=== PATIENT | female | born 1955 | race Caucasian/White ===

== ENCOUNTER 2020-10-04 10:28 | Inpatient (IN) ==
--- NOTE | 2020-09-13 13:41 | PAT Medication Instructions ---
Medication Instructions Date of Service September 13, 2020 Home Medications [id number] [Fiorinal-Codeine #3] 1 - 2 cap PO UD PRN cyclobenzaprine 5 mg PO TID PRN diazepam 5 mg PO TID PRN duloxetine 60 mg PO QAM levothyroxine 75 mcg PO QAM losartan 25 mg PO QAM omeprazole 40 mg PO QAM oxycodone 10 mg PO QID PRN topiramate 200 mg PO QAM ASK your surgeon for instructions [id number] [Fiorinal-Codeine #3] 1 - 2 cap PO UD PRN (contains aspirin) DO NOT take the morning of surgery cyclobenzaprine 5 mg PO TID PRN losartan 25 mg PO QAM Take morning of surgery With a small sip of water, OTHERWISE NOTHING TO EAT OR DRINK AFTER MIDNIGHT: diazepam 5 mg PO TID PRN (if needed) duloxetine 60 mg PO QAM levothyroxine 75 mcg PO QAM omeprazole 40 mg PO QAM oxycodone 10 mg PO QID PRN (if needed, may be taken up to four hours before surgery) topiramate 200 mg PO QAM Take evening before surgery cyclobenzaprine 5 mg PO TID PRN (if needed) diazepam 5 mg PO TID PRN (if needed) oxycodone 10 mg PO QID PRN (if needed) Other Notes If you have any questions please call us at [phone] or [phone] or [phone] or [phone]
--- NOTE | 2020-09-19 13:53 | Anesthesiology Consultation ---
Date of Service September 19, 2020 Assessment & Plan (1) Encounter for pre-operative examination: COVID screening: Per assessment on 09/19: Travel screen negative, no known COVID- 19 positive contacts or current COVID-19 related symptoms. Patient scheduled for second covid vaccine 09/26. Surgeon arranging preop COVID testing (scheduled 10/02; AISLINN Barrios). Awaiting results. Chart Review Chart Review: Acceptable Risk for Surgery and Patient seen in Pre Admission Testing Teaching & Discussion Pre-Anesthesia Teaching/Discussion Notes: Instructed NPO after midnight before surgery,except medications with 15 cc of water. Medication instructions provided according to the PAT guidelines. History Surgery Operation Date: 10/04/20 07:45 Proposed Procedures p L3-L4 Decompression, L3-L5 Fusion, Possible L5-S1, L4-L5 Hardware Removal, Spinal Cord Monitoring - Keith Chavarria, DO Height/Weight Height: 5 ft 3.5 in Weight: 83 kg Allergies Allergy/AdvReac Type Severity Reaction Status Date / Time cefprozil Allergy Unknown Tongue/hand Verified 09/16/20 11:08 swelling, itchiness eucalyptol Allergy Unknown Tongue Verified 09/16/20 11:08 [Listerine Antiseptic] swelling, hives Iodinated Contrast Media Allergy Unknown Swelling, Verified 09/16/20 11:08 hives ketorolac [From Toradol] Allergy Unknown Tongue/hand Verified 09/16/20 11:08 swelling, diffuse cramping Listerine Antiseptic Allergy Unknown TONGUE Unverified 11/07/13 13:47 SWELLING, HIVES menthol Allergy Unknown Tongue Verified 09/16/20 11:08 [Listerine Antiseptic] swelling, hives methyl salicylate Allergy Unknown Tongue Verified 09/16/20 11:08 [Listerine Antiseptic] swelling, hives thymol [Listerine Antiseptic] Allergy Unknown Tongue Verified 09/16/20 11:08 swelling, hives Bactrim AdvReac Unknown SEVERE ABD Unverified 11/07/13 13:47 PAIN, N&V doxycycline AdvReac Unknown Severe Verified 09/16/20 11:08 abdominal pain, N/V Penicillins AdvReac Unknown Severe Verified 09/16/20 11:08 abdominal pain, N/V sulfamethoxazole [Bactrim] AdvReac Unknown Severe Verified 09/16/20 11:08 abdominal pain, N/V trimethoprim [Bactrim] AdvReac Unknown Severe Verified 09/16/20 11:08 abdominal pain, N/V Medications Home Medications Medication Instructions Recorded Confirmed Last Taken [id number] 1 - 2 cap PO UD PRN 09/12/20 09/12/20 Unknown [Fiorinal-Codeine #3] cyclobenzaprine 5 mg PO TID PRN 09/12/20 09/12/20 Unknown diazepam 5 mg PO TID PRN 09/12/20 09/12/20 Unknown duloxetine 60 mg PO QAM 09/12/20 09/12/20 Unknown levothyroxine 75 mcg PO QAM 09/12/20 09/12/20 Unknown losartan 25 mg PO QAM 09/12/20 09/12/20 Unknown omeprazole 40 mg PO QAM 09/12/20 09/12/20 Unknown oxycodone 10 mg PO QID PRN 09/12/20 09/12/20 Unknown topiramate 200 mg PO QAM 09/12/20 09/12/20 Unknown Amitiza 1 tab PO BID 09/20/20 09/20/20 Unknown Past Medical History Medical History Anxiety Chronic back pain LBP Depression GERD (gastroesophageal reflux disease) controlled Hypertension Hypothyroidism Kidney stones Migraine Obesity Exercise / Class Metabolic Activity III < 4 Walking/Shop/Light housework Past Family History Family History Grandmother (Paternal) Family history of diabetes mellitus Grandmother (Maternal) Family history of diabetes mellitus Uncle Family history of diabetes mellitus Uncle Family history of diabetes mellitus Past Surgical History Surgical History Fusion of spine 2013 H/O bladder repair surgery History of arthroscopy Left knee History of cholecystectomy History of colonoscopy History of cystoscopy + stents (multiple) History of hysterectomy Hx of abdominoplasty Past Anesthesia History No Hx of Anesthesia Complications and No Family Hx of Anesthesia Complications History of PONV No Hx of PONV and Hx of Motion Sickness (+ cars) Social History Smoking Status: Never smoker Do You Dip or Chew Tobacco: No Hx Alcohol Use: No Hx Substance Use: No Review of Systems No snoring. Patient denies chest pain, shortness of breath, fever, chills, cough, wheezing, palpitations. Physical Exam Vital Signs VITALS BP 132/74 P 66 TEMP 98.8 SP02 99%RA RESP 16 PHYSICAL Full cervical extension range of motion. Full TMJ range of motion. TMD 3.5 finger breaths Mallampati Score 1 Dentition: full upper denture, missing molars Lungs: clear throughout to auscultation Cardiac: regular rate and rhythm, no murmurs noted Spine: normal Carotid arteries: negative bruit Extremities: no edema Lab Results Anesthesia Preop Results Results Anesthesia Widget: WBC 6.74 K/uL (4.8-10.8) 09/19/20 Hgb 13.3 g/dL (12.0-16.0) 09/19/20 Hct 39.7 % (37-47) 09/19/20 Plt 254 K/uL (130-400) 09/19/20 Na 140 mmol/L (136-145) 09/19/20 K 3.2 mmol/L (3.5-5.1) L 09/19/20 Cl 108 mmol/L (98-107) H 09/19/20 CO2 25 mmol/L (21-32) 09/19/20 BUN 12 mg/dl (7-18) 09/19/20 Creat 0.80 mg/dl (0.6-1.2) 09/19/20 Glucose Level 99 mg/dl (70-99) 09/19/20 PT 10.0 Seconds (9.0-12.0) 09/19/20 PTT 24.3 Seconds (21.0-31.0) 09/19/20 INR 1.0 (0.9-1.1) 09/19/20 Urine Color Yellow 09/19/20 Urine Appearance Clear (Clear) 09/19/20 Urine pH 5.5 (4.5-7.5) 09/19/20 Urine Specific [place] 1.013 (1.000-1.030) 09/19/20 Urine Protein Negative (Negative) 09/19/20 Urine Glucose (UA) Negative (Negative) 09/19/20 Urine Ketones Negative (Negative) 09/19/20 Urine Blood 3+ (Negative) H 09/19/20 Urine Nitrite Negative (Negative) 09/19/20 Urine Bilirubin Negative (Negative) 09/19/20 Urine Urobilinogen Negative (Negative) 09/19/20 Urine Leukocyte Esterase Trace (Negative) H 09/19/20 Urine WBC (Auto) 5-10 /hpf (0-5) H 09/19/20 Urine RBC (Auto) >30 /hpf (0-4) H 09/19/20 Urine Hyaline Casts (Auto) 1-5 /lpf (0-5) 09/19/20 Urine Epithelial Cells (Auto) 5-10 /lpf (0-5) H 09/19/20 Urine Bacteria (Auto) Negative (Negative) 09/19/20 Blood Type A Positive 09/19/20 Antibody Screen NEGATIVE 09/19/20 Lab Comments: Potassium mildly low at 3.2. Will forward preop labs to PCP for continuity of care. At anesthesiologist discretion AM DOS if recheck needed. Testing Electrocardiogram Date: 09/19/20 NSR at 61bpm. NS STA. No significant change compared to 11/07/13 per medical care manager. Chest X-Ray Date: 09/19/20 Findings: + NAD
[~2020-10-04 10:28] MED LIST: *CEFAZOLIN*ALLERGY NOTED TO ORDERED MEDICATION SCH; ACETAMINOPHEN 500 MG TAB PO SCH; CLINDAMYCIN 600 MG/54 ML BAG IV SCH; GABAPENTIN 600 MG DOSE PO SCH; LR 15ML/HR IV SCH; [UNRECOGNIZED DRUG - REMARK] SCH
[2020-10-04] MEDS ORDERED: fentaNYL citrate 100 MCG/2 ML VIAL ONE (12:58)
[2020-10-04] MEDS ORDERED: MIDAZOLAM HCL 1 MG/ML 2ML VIAL ONE (12:58)
[2020-10-04] MEDS ORDERED: ePHEDrine sulfate 50 MG/ML AMP IV PRN (13:04)
[2020-10-04] MEDS ORDERED: fentaNYL citrate 100 MCG/2 ML VIAL IV PRN (13:04)
[2020-10-04] MEDS ORDERED: ONDANSETRON INJ 2 MG/ML 2 ML VIAL IV PRN ×2 (13:04→17:03)
[2020-10-04] MEDS ORDERED: HYDROmorphone INJ 2 MG/ML SYR/VIAL IV PRN (13:04)
[2020-10-04] MEDS ORDERED: ATROPINE SULFATE 0.1 MG/ML 10ML SYR IV PRN (13:04)
--- NOTE | 2020-10-04 13:11 | History & Physical Bridge Note ---
Date of Service October 04, 2020 History & Physical Bridge Note I have examined the patient, reviewed the History & Physical and in the interval since the performance of the History & Physical I have noted the following changes of clinical significance: no changes noted
--- NOTE | 2020-10-04 13:12 | History & Physical Report ---
Date of Service October 04, 2020 Assessment & Plan (1) Lumbar stenosis with neurogenic claudication: Admission and Anticipated Discharge Date Admission Date: L3-L4 decompression, L3-L5 fusion, possible L5-S1, L4-5 hardware removal History of Present Illness Chief Complaint: Back and bilateral leg pain Primary Care Provider: Yola Grider DO This is a 65-year-old female who presents with current persistent back and leg pain. Failing course of nonoperative care she is here for surgical invention. Allergies Allergy/AdvReac Type Severity Reaction Status Date / Time cefprozil Allergy Unknown Tongue/hand Verified 10/04/20 11:09 swelling, itchiness eucalyptol Allergy Unknown Tongue Verified 10/04/20 11:09 [Listerine Antiseptic] swelling, hives Iodinated Contrast Media Allergy Unknown Swelling, Verified 10/04/20 11:09 hives ketorolac [From Toradol] Allergy Unknown Tongue/hand Verified 10/04/20 11:09 swelling, diffuse cramping Listerine Antiseptic Allergy Unknown TONGUE Unverified 11/07/13 13:47 SWELLING, HIVES menthol Allergy Unknown Tongue Verified 10/04/20 11:09 [Listerine Antiseptic] swelling, hives methyl salicylate Allergy Unknown Tongue Verified 10/04/20 11:09 [Listerine Antiseptic] swelling, hives thymol [Listerine Antiseptic] Allergy Unknown Tongue Verified 10/04/20 11:09 swelling, hives cefazolin [From Ancef] Allergy Verified 10/04/20 11:36 Bactrim AdvReac Unknown SEVERE ABD Unverified 11/07/13 13:47 PAIN, N&V doxycycline AdvReac Unknown Severe Verified 10/04/20 11:09 abdominal pain, N/V Penicillins AdvReac Unknown Severe Verified 10/04/20 11:09 abdominal pain, N/V sulfamethoxazole [Bactrim] AdvReac Unknown Severe Verified 10/04/20 11:09 abdominal pain, N/V trimethoprim [Bactrim] AdvReac Unknown Severe Verified 10/04/20 11:09 abdominal pain, N/V Home Medications Medication Instructions Recorded Confirmed Type [id number]-[id number]-caff 1 - 2 cap PO UD PRN 09/12/20 09/12/20 History [Fiorinal-Codeine #3] cyclobenzaprine 5 mg PO TID PRN 09/12/20 09/12/20 History diazepam 5 mg PO TID PRN 09/12/20 09/12/20 History duloxetine 60 mg PO QAM 09/12/20 09/12/20 History levothyroxine 75 mcg PO QAM 09/12/20 09/12/20 History losartan 25 mg PO QAM 09/12/20 09/12/20 History omeprazole 40 mg PO QAM 09/12/20 09/12/20 History oxycodone 10 mg PO QID PRN 09/12/20 09/12/20 History topiramate 200 mg PO QAM 09/12/20 09/12/20 History Amitiza 1 tab PO BID 09/20/20 09/20/20 History Past Med/Surg History Medical History (Updated 10/04/20 @ 11:06 by Halima Ribeiro, RN) Anxiety Chronic back pain LBP Depression GERD (gastroesophageal reflux disease) controlled Hypertension Hypothyroidism Kidney stones Kidney stones Migraine Obesity Surgical History Fusion of spine 2013 H/O bladder repair surgery History of arthroscopy Left knee History of cholecystectomy History of colonoscopy History of cystoscopy + stents (multiple) History of hysterectomy Hx of abdominoplasty Family History Grandmother (Paternal) Family history of diabetes mellitus Grandmother (Maternal) Family history of diabetes mellitus Uncle Family history of diabetes mellitus Uncle Family history of diabetes mellitus Social History (Updated 09/12/20 @ 16:03 by Yamilet Mott RN) Smoking Status: Never smoker Second Hand Exposure: Yes (MOTHER SMOKED); Do You Dip or Chew Tobacco: No; Hx Alcohol Use: No Hx Substance Use: No Preferred Language: Chinese Communication Ability: Effective Software Architect Required: No Beliefs That Will Affect Care: None Current Living Situation: Family current occupational status: disabled Other Information That Helps Us Care for You: No Feels Safe at Home: Yes Safety Concerns: Feels Safe At This Time Assistive Devices: Brace/Splint/Immobilizer, Denture - Upper and Glasses Assistive Devices Comment: BACK BRACE PRN Physical Exam Physical Exam: Patient is alert and oriented Heart regular rhythm Lungs clear to auscultation Results & Data ([facility]) Vital Signs (Past 12 Hours) Vital Signs Temp Pulse Resp BP Pulse Ox 10/04/20 11:11 36.6 C 81 20 141/68 H 99
[2020-10-04] MEDS ORDERED: CLINDAMYCIN 600 MG/54 ML D5W IV ONE (13:19)
[2020-10-04] MEDS ORDERED: BUPIVACAINE/EPINEPHRINE 0.5% MPF 1:200,000 30 ML VIAL ONE (13:23)
[2020-10-04] MEDS ORDERED: ONDANSETRON INJ 2 MG/ML 2 ML VIAL ONE (14:04)
[2020-10-04] MEDS ORDERED: HYDROmorphone INJ 2 MG/ML SYR/VIAL ONE (14:04)
[2020-10-04] MEDS ORDERED: LIDOCAINE 2% 2 ML VIAL/AMP(20MG/ML) INFIL ONE (14:04)
[2020-10-04] MEDS ORDERED: PROPOFOL IV EMULSION 10 MG/ML 20 ML VIAL IV ONE (14:04)
[2020-10-04] MEDS ORDERED: DEXAMETHASONE SOD INJ 4 MG/ML VIAL ONE (14:04)
[2020-10-04] MEDS ORDERED: NEOSTIGMINE METHYLSULFATE 1 MG/ML 10ML VIAL ONE (14:04)
[2020-10-04] MEDS ORDERED: LARYING-O-JET KIT (LTA) ONE (14:04)
[2020-10-04] MEDS ORDERED: GLYCOPYRROLATE 0.2 MG/ML VIAL ONE (14:04)
[2020-10-04] MEDS ORDERED: ROCURONIUM BROMIDE 10 MG/ML 5 ML VIAL IV ONE (14:04)
[2020-10-04] MEDS ORDERED: FLOSEAL HEMOSTATIC MATRIX 10ML TOP ONE (14:43)
--- NOTE | 2020-10-04 15:28 | Operative Report ---
Post Operative Report Pre & Post Diagnosis Operation Date: 10/04/20 12:25 Pre-Op Diagnosis: Spinal Stenosis, Lumbar Region with Neurogenic Claudication Post-Op Diagnosis: Spinal Stenosis, Lumbar Region with Neurogenic Claudication I identified the patient and participated in the time-out.: Yes Procedure Operation Date: 10/04/20 12:25 Actual Procedures #1 removal of posterior instrumentation L4-L5. #2 exploration of fusion L4-L5. #3 lumbar decompression bilateral medial facetectomies and foraminotomies L2-3 and L3-4. #4 posterior spinal fusion L3-L4. #5 placed posterior instrumentation L3-L4. #6 interbody fusion L3-L4. #7 placement peek cage 13 x 22 mm at L3-L4. #8 placement locally harvested morselized autograft in the posterior gutters. #9 placement infuse collagen sponge, master graft in the posterior lateral gutters and I factor the interbody space. Surgeon Keith Chavarria, DO [employer] Roly Gtz Estimated Blood Loss 50 Findings See Below The patient is 5 foot 3 inches tall weighing 83 kg with a BMI in excess of 31. Patient's body habitus did contribute to significant technical difficulty requiring her deepest retractors longus instruments in order to perform her procedure. This at least 50% increase to the operative time. Specimens None Indications This is a 65-year-old female who presents with above-mentioned diagnosis after failing course of nonoperative care she is here for the above-mentioned procedure. Description of Procedure Patient was met with identified informed consent obtained. Patient was then taken to the operative suite underwent ablation placed in a prone position the Hernandez table top Bryn frame. All bony prominences well-padded eyes inspected to ensure no external pressure placed upon the. This point the lumbar spine was prepped and draped in a sterile fashion. Sharp dissection with the assistance of Bovie cautery performed down to and exposing the lamina and transverse processes of all 3 and instrumentation at L4-L5 bilaterally. Then proceeded to move the hardware at L4-5 explore the fusion mass noting to me mature and intact. Then performed complete laminectomy of L3 partial laminectomy of L2 including bilateral medial facetectomies and foraminotomies addressing severe spinal stenosis. Pedicle screws were then placed in L3 and L4 bilaterally with assistance of fluoroscopy and the proper sized naresh placed. By way of a transforaminal portion left complete discectomy was performed endplates curetted to subcortical bleeding bone and a 13 x 22 mm peek cage filled with I factor tapped in position. The rods were then locked in final position bilaterally. The transverse processes of L3 and L4 burred to subcortical bleeding bone. Infuse collagen sponge master graft and local autograft was placed in the posterior gutters. 15 round SANTA drain inserted. The incision was then closed with 1 Vicryl the fascia 2-0 Vicryl subcutaneously and 4 Monocryl for final skin closure. Steri-Strip sterile dressings placed. Patient was then taken to PACU stable condition. Please note spinal cord monitoring was utilized at the procedure no changes noted. Lastly Roly Gtz was present at the entire surgery and while the patient positioning complex portions of the surgery and final skin closure. I attest to the content of the Intraoperative Record and any orders documented therein. Any exceptions are noted below.
--- NOTE | 2020-10-04 15:50 | Fluoroscopy Report ---
FL lumbar spine 2-3V HISTORY: 65 years-old Female L4-5 REMOVE HARDWARE/L3-S1 DECOMPRESSION/FUSION/INTERBODY COMPARISON: Lumbar spine fluoroscopic images 11/24/2013 TECHNIQUE: 2 spot fluoroscopic images of the lumbar spine were obtained utilizing 12.5 seconds fluoro scopy time FINDINGS: Magnification limits exact vertebral body numbering. Note that the images were submitted after comple tion of the surgery. Discectomy changes noted at L3-L4 and L4-L5. Posterior interbody naresh and screw f usion noted at L3-L4. Interval removal of the pedicle screws at the L5 level. No opaque foreign emma s identified. IMPRESSION: Fluoroscopic assistance as above. ACT 112: Negative or not required by law. The above report was generated using voice recognition software. It may contain grammatical, syntax o r spelling errors. Electronically signed by: Jose Martinez M.D. 10/04/2020 3:49 PM
--- NOTE | 2020-10-04 16:22 | Anesthesiology Progress Note ---
Date of Service October 04, 2020 Anesthesia Post Procedure Vital Signs Vital Signs: Temp Pulse Pulse Resp BP Pulse Ox 10/04/20 16:15 66 14 119/58 L 100 10/04/20 16:05 73 19 131/65 95 10/04/20 15:55 97.2 F L 89 22 139/89 100 10/04/20 11:11 97.9 F 81 20 141/68 H 99 Pain Intensity Lower Back: Pain Intensity: 5 Transfer of Care Handoff Completed per policy Notes Mental Status: alert / awake / arousable and participated in evaluation Patient Amnestic to Procedure: Yes Nausea / Vomiting: adequately controlled Pain: adequately controlled Airway Patency, RR, SpO2: stable & adequate BP & HR: stable & adequate Hydration State: stable & adequate Anesthetic Complications: no major complications apparent and Pt Satisfied with anesthetic care
[2020-10-04] MEDS ORDERED: ACETAMINOPHEN 1,000 MG/100 ML VIAL IV PRN (17:03)
[2020-10-04] MEDS ORDERED: PROMETHAZINE HCL 12.5 MG in SODIUM CHLORIDE 0.9% 50 ML IV PRN (17:03)
[2020-10-04] MEDS ORDERED: ACETAMINOPHEN 500 MG TAB PO PRN (17:03)
[2020-10-04] MEDS ORDERED: LORazepam 0.5 MG/1 ML VIAL IV PRN (17:03)
[2020-10-04] MEDS ORDERED: FAMOTIDINE 20 MG TAB PO PRN (17:03)
[2020-10-04] MEDS ORDERED: diphenhydrAMINE Capsule 25 MG CAP PO PRN (17:03)
[2020-10-04] MEDS ORDERED: hydrOXYzine HCl 25 MG TAB PO PRN (17:03)
[2020-10-04] MEDS ORDERED: ONDANSETRON 4 MG OD TAB PO PRN (17:03)
[2020-10-04] MEDS ORDERED: HYDROmorphone INJ 1 MG/ML SYRINGE IV PRN (17:03)
[2020-10-04] MEDS ORDERED: traMADol HCL 50 MG TABLET PO PRN (17:03)
[2020-10-04] MEDS ORDERED: NALOXONE HCL 0.4 MG/1 ML VIAL/CARP IV PRN (17:03)
[2020-10-04] MEDS ORDERED: MAGNESIUM HYDROXIDE SUSP 30 ML UDC PO PRN (17:03)
[2020-10-04] MEDS ORDERED: SOD PHOSPHATE/SOD BIPHOSPHATE ENEMA 132 ML BTL PR PRN (17:03)
[2020-10-04] MEDS ORDERED: DO NOT ADMINISTER FLU VACCINE PRN (17:03)
[2020-10-04] MEDS ORDERED: DO NOT ADMINISTER PNEUMOCOCCAL VACCINE PRN (17:03)
[2020-10-04] MEDS ORDERED: HYDROmorphone INJ 0.5 MG/0.5 ML SYR IV PRN (17:03)
[2020-10-04] MEDS ORDERED: CYCLOBENZAPRINE HCL 10 MG TAB PO PRN (17:03)
[2020-10-04] MEDS ORDERED: METOCLOPRAMIDE HCL INJ 5 MG/ML 2 ML VIAL IV PRN (17:03)
[2020-10-04] MEDS: oxyCODONE HCL IR 5 MG TAB (IMMEDIATE RELEASE) PO PRN ×2 (17:45→21:59)
[2020-10-04] MEDS: SODIUM CHLORIDE 0.9% 1000ML 1,000 ML IV SCH (17:45)
--- NOTE | 2020-10-04 19:54 | Consultation ---
Date of Consultation October 04, 2020 Assessment & Plan (1) Status post lumbar surgery: Post op day# 0 S/P removal instrumentation, L2-L4 decompression and fusion by Dr Aura MAURICIO#50ml -pain management per ortho -wound management per ortho -PT/OT as appropriate -DVT prophylaxis per ortho -incentive spirometry -monitor H&H for acute blood loss anemia; pre-op Hgb:13 (2) Hypertension: SBP 90's-114 -Hold losartan and reassess tomorrow (3) Hypothyroidism: -Continue levothyroxine (4) GERD (gastroesophageal reflux disease): -Continue PPI (5) Depression: (6) Anxiety: -Continue duloxetine DVT Prophylaxis -SCDs per ortho Disposition per primary service Follows with Dr Yola Grider in [place], [place] for routine care Pt was seen and care coordinated with Dr Holman. See addendum Thank you for this consultation. We will follow the patient with you during their hospital stay. You can reach a member of the [facility] 02/11 via [employer] Supervising Physician Co-Signing Physician Notes Care coordinated with Mago Yancey PA-C. Agree with above note. Patient seen and examined. Please refer to her notes for full details. Vital signs reviewed. Physical exam: General exam: Alert and oriented. Not in acute distress. CVS: S1 and S2 heard, regular rate and rhythm, no murmurs. RS: Clear to auscultation, no wheezing or crackles. ABD: Soft, bowel sounds present, nontender, no distention. RADIATION PROTECTION ENGINEER: Nonfocal. Musculoskeletal s/p back surgery Dressing intact EXT: No edema, no erythema. Labs: Reviewed. Assessment and plan: 65F s/p back surgery. Tolerated procedure fine. Complains of migraine headache. No other complaints. s/p Back surgery management as per orthopedics Migraine home med Fiorinal prn HTN holding losartan as BP on lower side to restart in am if BP is elevated Other diagnosis and plan of care as per Mago Yancey PA-C . Kar dickerson MD. History of Present Illness Requesting Physician: Dr. Chavarria Reason for Consultation: Postop medical management Attending Physician: Keith Chavarria, DO History of Present Illness Patient is 65-year-old F with PMH HTN, hypothyroidism, GERD, depression, anxiety, h/o kidney stones, obesity seen in medical consultation s/p removal instrumentation, L2-L4 decompression and fusion today by Dr. Chavarria. Postop patient reports feeling well. She reports low back pain but states it is her chronic pain that she feels is tolerable. Denies extremity pain or paresthesias at this time. Was able to get up and ambulate to bathroom without extremity weakness. Denies nausea, vomiting, headache, dizziness, chest pain, shortness of breath. Denies fever/chills, neck pain, palpitations, cough, sore throat, abdominal pain, extremity edema, rashes, urinary symptoms. Allergies Allergy/AdvReac Type Severity Reaction Status Date / Time cefprozil Allergy Unknown Tongue/hand Verified 10/04/20 11:09 swelling, itchiness eucalyptol Allergy Unknown Tongue Verified 10/04/20 11:09 [Listerine Antiseptic] swelling, hives Iodinated Contrast Media Allergy Unknown Swelling, Verified 10/04/20 11:09 hives ketorolac [From Toradol] Allergy Unknown Tongue/hand Verified 10/04/20 11:09 swelling, diffuse cramping Listerine Antiseptic Allergy Unknown TONGUE Unverified 11/07/13 13:47 SWELLING, HIVES menthol Allergy Unknown Tongue Verified 10/04/20 11:09 [Listerine Antiseptic] swelling, hives methyl salicylate Allergy Unknown Tongue Verified 10/04/20 11:09 [Listerine Antiseptic] swelling, hives thymol [Listerine Antiseptic] Allergy Unknown Tongue Verified 10/04/20 11:09 swelling, hives cefazolin [From Ancef] Allergy Verified 10/04/20 11:36 Bactrim AdvReac Unknown SEVERE ABD Unverified 11/07/13 13:47 PAIN, N&V doxycycline AdvReac Unknown Severe Verified 10/04/20 11:09 abdominal pain, N/V Penicillins AdvReac Unknown Severe Verified 10/04/20 11:09 abdominal pain, N/V sulfamethoxazole [Bactrim] AdvReac Unknown Severe Verified 10/04/20 11:09 abdominal pain, N/V trimethoprim [Bactrim] AdvReac Unknown Severe Verified 10/04/20 11:09 abdominal pain, N/V Home Medications Medication Instructions Recorded Confirmed Type [id number] 1 - 2 cap PO UD PRN 09/12/20 09/12/20 History [Fiorinal-Codeine #3] cyclobenzaprine 5 mg PO TID PRN 09/12/20 09/12/20 History diazepam 5 mg PO TID PRN 09/12/20 09/12/20 History duloxetine 60 mg PO QAM 09/12/20 09/12/20 History levothyroxine 75 mcg PO QAM 09/12/20 09/12/20 History losartan 25 mg PO QAM 09/12/20 09/12/20 History omeprazole 40 mg PO QAM 09/12/20 09/12/20 History oxycodone 10 mg PO QID PRN 09/12/20 09/12/20 History topiramate 200 mg PO QAM 09/12/20 09/12/20 History Amitiza 1 tab PO BID 09/20/20 09/20/20 History Patient History Medical History (Updated 10/04/20 @ 19:57 by Mago Yancey PA-C) Anxiety Chronic back pain LBP Depression GERD (gastroesophageal reflux disease) controlled Hypertension Hypothyroidism Kidney stones Kidney stones Migraine Obesity Surgical History (Updated 10/04/20 @ 19:57 by Mago Yancey PA-C) Fusion of spine 2013 H/O bladder repair surgery History of arthroscopy Left knee History of cholecystectomy History of colonoscopy History of cystoscopy + stents (multiple) History of hysterectomy Hx of abdominoplasty Family History Grandmother (Paternal) Family history of diabetes mellitus Grandmother (Maternal) Family history of diabetes mellitus Uncle Family history of diabetes mellitus Uncle Family history of diabetes mellitus Social History Smoking Status: Never smoker Second Hand Exposure: Yes (MOTHER SMOKED); Do You Dip or Chew Tobacco: No; Hx Alcohol Use: No Hx Substance Use: No Preferred Language: Azeri Communication Ability: Effective Waffle Machine Operator Required: No Beliefs That Will Affect Care: None Current Living Situation: Family current occupational status: disabled Other Information That Helps Us Care for You: No Feels Safe at Home: Yes Safety Concerns: Feels Safe At This Time Assistive Devices: Walker Assistive Devices Comment: BACK BRACE PRN Review of Systems Review of Systems: All systems reviewed & are unremarkable except as noted in HPI & below Physical Exam Physical Exam: General: no distress, WDWN Head: normocephalic, atraumatic Eyes: conjunctiva non-injected, anicteric ENT: normal inspection external ears, nose, mucous membranes moist Neck: supple, trachea midline Lungs: clear, no respiratory distress, no wheezing/rhonchi/rales CV: RRR, no murmur, no pretibial edema Abd: normal BS, soft, non-tender Ext: no cyanosis, no calf tenderness; pedal pushes and pulls intact bilaterally, sensation to light touch and intact bilaterally Back: Surgical dressing in place is dry, SANTA drain with small amount of serosanguineous drainage Neuro: A&O x 3, no focal deficits noted, normal affect Skin: warm, dry Results & Data ([facility]) Vital Signs (Past 12 Hours) Vital Signs Temp Pulse Pulse Pulse Resp BP Pulse Ox 10/04/20 19:21 36.4 C L 77 16 114/63 94 10/04/20 18:07 36.4 C L 72 16 93/61 L 97 10/04/20 17:33 77 16 108/67 95 10/04/20 17:03 36.4 C L 65 18 114/68 95 10/04/20 16:55 66 12 116/60 97 10/04/20 16:45 64 12 120/58 L 97 10/04/20 16:35 36.4 C L 65 19 116/59 L 97 10/04/20 16:25 72 18 107/61 92 10/04/20 16:15 66 14 119/58 L 100 10/04/20 16:05 73 19 131/65 95 10/04/20 15:55 36.2 C L 89 22 139/89 100 10/04/20 11:11 36.6 C 81 20 141/68 H 99
[2020-10-04] MEDS: DOCUSATE SODIUM/SENNA 50/8.6MG TAB PO SCH (20:47)
[2020-10-04] MEDS: CLINDAMYCIN 600 MG in DEXTROSE 5% 50 ML IV SCH (20:47)
[2020-10-04] MEDS ORDERED: BUTALBITAL/ASA/CAFFEINE/COD 50/325/40/30 MG CAP PO PRN ×2 (21:21→21:35)
[2020-10-04] MEDS ORDERED: BUTALBITAL/ASA/CAFFEINE/COD 50/325/40/30 MG CAP PO ONE (22:00)
[2020-10-05] MEDS: LORazepam 0.5 MG TAB PO PRN ×2 (00:13→01:05)
[2020-10-05] MEDS: SODIUM CHLORIDE 0.9% 1000ML 1,000 ML IV SCH (03:47)
[2020-10-05] MEDS: CLINDAMYCIN 600 MG in DEXTROSE 5% 50 ML IV SCH (04:58)
[2020-10-05] MEDS: LEVOTHYROXINE SODIUM 75 MCG TABLET PO SCH (05:44)
[2020-10-05] MEDS: POLYETHYLENE (MIRALAX) 17 GM PACK PO SCH ×4 (05:47→21:56)
[2020-10-05] MEDS ORDERED: ACETAMINOPHEN 500 MG TAB PO SCH (06:00)
[2020-10-05] MEDS ORDERED: GABAPENTIN 600 MG DOSE PO SCH (06:00)
[2020-10-05] MEDS: oxyCODONE HCL IR 5 MG TAB (IMMEDIATE RELEASE) PO PRN ×4 (06:02→22:16)
[2020-10-05 06:43] LABS: Eosinophils # (auto) 0.01 K/uL (0-0.5); Eosinophils % (auto) 0.1 %; Hematocrit (blood only) 31.3 % (37-47); Hemoglobin 10.1 g/dL (12.0-16.0); Immature Granulocytes # (auto) 0.01 K/uL (0.00-0.02); Immature Granulocytes % (auto) 0.1 %; Lymphocytes # (auto) 1.17 K/uL (1.2-3.4); Lymphocytes % (auto) 11.1 %; Mean Corpuscular Hemoglobin 29.4 pg (25-34); Mean Corpuscular Hgb Conc 32.3 g/dL (32-36); Mean Platelet Volume 8.7 fL (7.4-10.4); Monocytes # (auto) 0.98 K/uL (0.11-0.59); Monocytes % (auto) 9.3 %; Neutrophils # (auto) 8.39 K/uL (1.4-6.5); Neutrophils % (auto) 79.4 %; Platelet Count 190 K/uL (130-400); RDW Coefficient of Variation 13.5 % (11.5-14.5); RDW Standard Deviation 44.9 fL (36.4-46.3); Red Blood Count 3.44 M/uL (4.2-5.4); White Blood Count 10.56 K/uL (4.8-10.8)
[2020-10-05 07:00] LABS: BUN Creatinine Ratio 16.9 (10-20); Calcium 8.2 mg/dl (8.5-10.1); Creatinine Clr Calc Pharmacy 91.4 ml/min; Est GFR (African American) 109.5 ml/min; Est GFR (Non-African American) 94.5 ml/min
--- NOTE | 2020-10-05 07:33 | Hospitalist Progress Note ---
Date of Service October 05, 2020 Assessment & Plan (1) Status post lumbar surgery: Post op day# 1 S/P removal instrumentation, L2-L4 decompression and fusion by Dr Aura MAURICIO#50ml -pain management per ortho -wound management per ortho -PT/OT as appropriate -DVT prophylaxis per ortho -incentive spirometry -monitor H&H for acute blood loss anemia; pre-op Hgb:13 Anemia, acute blood loss (post-op), dilutional - expected, no need for blood transfusion at this time - current Hgb 10.1, preop Hgb 13 - cont. to monitor H&H (2) Hypertension: SBP 90's-114 -Hold losartan and reassess tomorrow (3) Hypothyroidism: -Continue levothyroxine (4) GERD (gastroesophageal reflux disease): -Continue PPI (5) Depression: (6) Anxiety: -Continue duloxetine DVT Prophylaxis -SCDs per ortho Disposition per primary service Follows with Dr Yola Grider in [place], [place] for routine care Thank you for this consultation. We will follow the patient with you during their hospital stay. You can reach a member of the [facility]ist Team 02/11 via [facility] Admission and Anticipated Discharge Date Admission Date: October 04, 2020 Subjective Patient seen in follow-up, postop, medical consult Currently she is sitting up in bed, in no acute distress Denies any fevers, chills, chest pain, shortness of breath, abdominal pain, nausea or vomiting Reports that she was already ambulating after surgery She does not have a Chacon catheter, and is voiding without difficulty Review of Systems Review of Systems: All systems reviewed & are unremarkable except as noted in HPI & below Constitutional: no fever and no chills Respiratory: no cough and no dyspnea Cardiovascular: no chest pain and no palpitations Gastrointestinal: no abdominal pain, no nausea and no vomiting Physical Exam Physical Exam: General: WDWN F, no distress, Head: normocephalic, atraumatic Eyes: conjunctiva non-injected, anicteric ENT: normal inspection external ears, nose, mucous membranes moist Neck: supple, trachea midline Lungs: clear, no respiratory distress, no wheezing/rhonchi/rales CV: RRR, no murmur, no pretibial edema Abd: normal BS, soft, non-tender Ext: no cyanosis, no calf tenderness; pedal pushes and pulls intact bilaterally, sensation to light touch and intact bilaterally Back: Surgical dressing in place is dry, SANTA drain with small amount of serosanguineous drainage Neuro: A&O x 3, no focal deficits noted, normal affect Skin: warm, dry Results & Data Results & Data ([facility]) Vital Signs (Past 12 Hours) Vital Signs Temp Pulse Resp BP Pulse Ox 10/05/20 03:15 36.9 C 72 16 90/47 L 95 10/04/20 22:31 36.6 C 88 16 133/75 99 10/04/20 20:00 36.6 C 78 16 120/72 94 Laboratory Results 10/05/20 10/05/20 10/04/20 Range/Units 06:33 06:33 11:09 WBC 10.56 (4.8-10.8) K/uL RBC 3.44 L (4.2-5.4) M/uL Hgb 10.1 L (12.0-16.0) g/dL Hct 31.3 L (37-47) % MCV 91.0 (80-100) fL MCH 29.4 (25-34) pg MCHC 32.3 (32-36) g/dL RDW Std Deviation 44.9 (36.4-46.3) fL RDW Coeff of Elio 13.5 (11.5-14.5) % Plt Count 190 (130-400) K/uL MPV 8.7 (7.4-10.4) fL Immature Gran % (Auto) 0.1 % Neut % (Auto) 79.4 % Lymph % (Auto) 11.1 % [place] % (Auto) 9.3 % Eos % (Auto) 0.1 % Baso % (Auto) 0.0 % Neut # (Auto) 8.39 H (1.4-6.5) K/uL Lymph # (Auto) 1.17 L (1.2-3.4) K/uL [place] # (Auto) 0.98 H (0.11-0.59) K/uL Eos # (Auto) 0.01 (0-0.5) K/uL Baso # (Auto) 0.00 (0-0.2) K/uL Immature Gran # (Auto) 0.01 (0.00-0.02) K/uL Sodium 142 (136-145) mmol/L Potassium 4.0 (3.5-5.1) mmol/L Chloride 112 H (98-107) mmol/L Carbon Dioxide 25 (21-32) mmol/L Anion Gap 5.0 (3-11) BUN 11 (7-18) mg/dl Creatinine 0.65 (0.6-1.2) mg/dl Est Cr Clr Drug Dosing 91.4 ml/min Est GFR ( Amer) 109.5 ml/min Est GFR (Non-Af Amer) 94.5 ml/min BUN/Creatinine Ratio 16.9 (10-20) Glucose 145 H (70-99) mg/dl Calcium 8.2 L (8.5-10.1) mg/dl COVID-19 Eval Order SARS-CoV-2, RNA, NAAT (NEGATIVE) Blood Type A Positive Antibody Screen NEGATIVE Crossmatch See Detail 10/04/20 10/04/20 Range/Units 10:58 10:58 WBC (4.8-10.8) K/uL RBC (4.2-5.4) M/uL Hgb (12.0-16.0) g/dL Hct (37-47) % MCV (80-100) fL MCH (25-34) pg MCHC (32-36) g/dL RDW Std Deviation (36.4-46.3) fL RDW Coeff of Elio (11.5-14.5) % Plt Count (130-400) K/uL MPV (7.4-10.4) fL Immature Gran % (Auto) % Neut % (Auto) % Lymph % (Auto) % [place] % (Auto) % Eos % (Auto) % Baso % (Auto) % Neut # (Auto) (1.4-6.5) K/uL Lymph # (Auto) (1.2-3.4) K/uL [place] # (Auto) (0.11-0.59) K/uL Eos # (Auto) (0-0.5) K/uL Baso # (Auto) (0-0.2) K/uL Immature Gran # (Auto) (0.00-0.02) K/uL Sodium (136-145) mmol/L Potassium (3.5-5.1) mmol/L Chloride (98-107) mmol/L Carbon Dioxide (21-32) mmol/L Anion Gap (3-11) BUN (7-18) mg/dl Creatinine (0.6-1.2) mg/dl Est Cr Clr Drug Dosing ml/min Est GFR ( Amer) ml/min Est GFR (Non-Af Amer) ml/min BUN/Creatinine Ratio (10-20) Glucose (70-99) mg/dl Calcium (8.5-10.1) mg/dl COVID-19 Eval Order Covid19 [facility] SARS-CoV-2, RNA, NAAT NEGATIVE (NEGATIVE) Blood Type Antibody Screen Crossmatch Medications Administered Current Inpatient Medications Acetaminophen (Acetaminophen 500 Mg Tab) 1,000 mg PO Q8H PRN PRN Reason: MILD Pain Scale 1,2,3 & Pre PT Stop: 11/03/20 17:02 Al Hydrox/Mg Hydrox/Simethicone (Aluminum/Magnesium Susp 30 Ml Udc) 30 ml PO Q6H PRN PRN Reason: Dyspepsia Stop: 11/03/20 17:02 Bisacodyl (Bisacodyl 10 Mg Supp) 10 mg VA DAILY PRN PRN Reason: Constipation Stop: 11/05/20 07:59 Butalbital/Aspirin/Caffeine/Codeine (Butalbital/Asa/Caffeine/Cod 50/325/40/30 Mg Cap) 1 - 2 cap PO DAILY PRN PRN Reason: Migraine Headache Stop: 11/03/20 21:20 Cyclobenzaprine HCl (Cyclobenzaprine Hcl 10 Mg Tab) 10 mg PO Q8 PRN PRN Reason: Muscle Spasm Stop: 11/03/20 17:02 Diazepam (Diazepam 5 Mg Tablet) 5 mg PO TID PRN PRN Reason: Anxiety Stop: 11/03/20 17:02 Diphenhydramine HCl (Diphenhydramine Capsule 25 Mg Cap) 25 mg PO Q6H PRN PRN Reason: Allergic Rhinitis/Insomnia Stop: 11/03/20 17:02 Duloxetine HCl (Duloxetine Hcl 60 Mg Cap) 60 mg PO QAM HATTIE Stop: 11/04/20 08:59 Famotidine (Famotidine 20 Mg Tab) 20 mg PO Q12H PRN PRN Reason: Dyspepsia Stop: 11/03/20 17:02 Hydromorphone HCl (Hydromorphone Inj 0.5 Mg/0.5 Ml Syr) 0.5 mg IV Q3H PRN PRN Reason: MOD pain (scale 4-6) & Pre PT Stop: 10/18/20 17:02 Hydromorphone HCl (Hydromorphone Inj 1 Mg/Ml Syringe) 1 mg IV Q3H PRN PRN Reason: severe pain (scale 7-10) Stop: 10/18/20 17:02 Hydroxyzine HCl (Hydroxyzine Hcl 25 Mg Tab) 25 mg PO Q8H PRN PRN Reason: Anxiety Stop: 11/03/20 17:02 Acetaminophen (Ofirmev) 1,000 mg in 100 mls @ 400 mls/hr IV Q8H PRN PRN Reason: Pain Rating 1-3 & Pre PT Stop: 10/05/20 15:29 Lorazepam (Ativan) 0.5 mg in 1 mls @ 1 mls/min IV Q8H PRN PRN Reason: Sedation/Anxiety Stop: 11/03/20 17:02 Promethazine HCl 12.5 mg/ (Sodium Chloride) 50.5 mls @ 202 mls/hr IV Q6H PRN PRN Reason: Nausea &/or Vomiting Stop: 11/03/20 17:02 Influenza Virus Vaccine Quadrival (Do Not Administer Flu Vaccine) 1 ea N/A PRN PRN PRN Reason: Notification Stop: 11/03/20 17:02 Levothyroxine Sodium (Levothyroxine Sodium 75 Mcg Tablet) 75 mcg PO DAILYBB [facility] Stop: 11/04/20 06:29 Last Admin: 10/05/20 05:44 Dose: 75 mcg Documented by: Lorazepam (Lorazepam 0.5 Mg Tab) 0.5 mg PO Q8H PRN PRN Reason: sedation/anxiety Stop: 11/03/20 17:02 Last Admin: 10/05/20 01:05 Dose: 0.5 mg Documented by: Losartan Potassium (Losartan Potassium 25 Mg Tab) 25 mg PO QAM [facility] Stop: 11/04/20 08:59 Magnesium Hydroxide (Magnesium Hydroxide Susp 30 Ml Udc) 30 ml PO Q24H PRN PRN Reason: Constipation Stop: 11/03/20 17:02 Metoclopramide HCl (Metoclopramide Hcl Inj 5 Mg/Ml 2 Ml Vial) 10 mg IV Q6H PRN PRN Reason: Nausea &/or Vomiting Stop: 11/03/20 17:02 Naloxone HCl (Naloxone Hcl 0.4 Mg/1 Ml Vial/Carp) 0.1 mg IV Q5M PRN PRN Reason: Oversedation/respiratory dep Stop: 11/03/20 17:02 Ondansetron HCl (Ondansetron Inj 2 Mg/Ml 2 Ml Vial) 4 mg IV Q6H PRN PRN Reason: Nausea &/or Vomiting Stop: 11/03/20 17:02 Ondansetron HCl (Ondansetron 4 Mg Od Tab) 4 mg PO Q6H PRN PRN Reason: Nausea Stop: 11/03/20 17:02 Last Admin: 10/05/20 01:03 Dose: 4 mg Documented by: Oxycodone HCl (Oxycodone Hcl Ir 5 Mg Tab (Immediate Release)) 5 - 10 mg PO Q4H PRN PRN Reason: Pain & Pre PT Stop: 10/18/20 17:02 Last Admin: 10/05/20 06:02 Dose: 10 mg Documented by: Pantoprazole Sodium (Pantoprazole 40 Mg Tab) 40 mg PO QAM [facility] Stop: 11/04/20 08:59 Pneumococcal Polyvalent Vaccine (Do Not Administer Pneumococcal Vaccine) 1 ea N/A PRN PRN PRN Reason: Notification Stop: 11/03/20 17:02 Polyethylene Glycol (Polyethylene (Miralax) 17 Gm Pack) 17 gm PO Q6 HATTIE Stop: 11/04/20 05:59 Last Admin: 10/05/20 05:47 Dose: Not Given Documented by: Senna/Docusate Sodium (Docusate Sodium/Senna 50/8.6mg Tab) 2 tab PO HS HATTIE Stop: 11/03/20 20:59 Last Admin: 10/04/20 20:47 Dose: 2 tab Documented by: Sodium Biphosphate/Sodium Phosphate (Sod Phosphate/Sod Biphosphate Enema 132 Ml Btl) 132 ml VA ONE PRN PRN Reason: Constipation Stop: 11/03/20 17:02 Topiramate (Topiramate 100 Mg Tab) 200 mg PO QAM [facility] Stop: 11/04/20 08:59 Tramadol HCl (Tramadol Hcl 50 Mg Tablet) 50 - 100 mg PO Q4H PRN PRN Reason: Moderate-Severe pain & Pre PT Stop: 11/03/20 17:02
--- NOTE | 2020-10-05 08:48 | Orthopedic Progress Note ---
Date of Service October 05, 2020 Assessment & Plan (1) Status post lumbar surgery: Patient is postoperative day 1 posterior lumbar decompression fusion of L3-4 with removal of L4-5. She is doing great. We will start physical therapy today. Maintain SANTA drain and dressing. DVT prophylaxis is in the form of teds and SCDs. Continue with pain control. Anticipate discharge home Wednesday. Admission and Anticipated Discharge Date Admission Date: October 04, 2020 Supervising Physician Co-Signing Physician Notes Dr. Keith Chavarria Subjective Patient is postoperative day 1 posterior lumbar decompression and fusion of L3- 4, hardware removal of L4-5. She is doing well. She has had an uneventful evening. Leg and tailbone symptoms are greatly improved compared to preoperative status. H&H is morning are 10.1 and 31.3 respectively. SANTA drain output last shift was 110 cc. No other complaints Review of Systems Review of Systems: All systems reviewed & are unremarkable except as noted in HPI & below Physical Exam Physical Exam: Alert and oriented x3. She is sitting in bed eating breakfast. No acute distress Calves are soft nontender bilateral lower extremities motor testing is intact bilateral lower extremities Lumbar dressing is clean dry and intact with functioning SANTA drain Constitutional: WD/WN, vitals as above Eyes: normal visual hassan by confrontation ENMT: external ear and nose normal, oropharynx normal Neck: normal visual inspection Respiratory: normal respiratory effort Cardiovascular: Extremities: normal capillary refill Chest (Breasts): Chest: normal inspection of chest Gastrointestinal (Abdomen): Inspection/Auscultation: abdomen normal to inspection Musculoskeletal: no cyanosis or clubbing, extremities motor strength 5/5 Extremities: extremities normal to inspection and strength 5/5 throughout Skin: no rashes, warm and dry Neurologic: normal touch/pain/proprioception and moves all extremities Psychiatric: A+Ox3, euthymic affect Results & Data ([facility]) Vital Signs (Past 12 Hours) Vital Signs Temp Pulse Resp BP Pulse Ox 10/05/20 08:21 36.6 C 78 16 110/72 99 10/05/20 03:15 36.9 C 72 16 90/47 L 95 10/04/20 22:31 36.6 C 88 16 133/75 99
[2020-10-05] MEDS: TOPIRAMATE 100 MG TAB PO SCH (08:55)
[2020-10-05] MEDS: PANTOprazole 40 MG TAB PO SCH (08:55)
[2020-10-05] MEDS: DULoxetine HCL 60 MG CAP PO SCH (08:56)
[2020-10-05] MEDS ORDERED: LOSARTAN POTASSIUM 25 MG TAB PO SCH (09:00)
[2020-10-05] MEDS: diazePAM 5 MG TABLET PO PRN (12:07)
[2020-10-05] MEDS: DOCUSATE SODIUM/SENNA 50/8.6MG TAB PO SCH (19:11)
[2020-10-05] MEDS: ALUMINUM/MAGNESIUM SUSP 30 ML UDC PO PRN (22:05)
[2020-10-06] MEDS: oxyCODONE HCL IR 5 MG TAB (IMMEDIATE RELEASE) PO PRN ×4 (04:18→23:16)
[2020-10-06] MEDS: ALUMINUM/MAGNESIUM SUSP 30 ML UDC PO PRN ×2 (04:19→23:17)
[2020-10-06] MEDS: POLYETHYLENE (MIRALAX) 17 GM PACK PO SCH ×3 (05:57→17:39)
[2020-10-06 06:16] LABS: Hematocrit (blood only) 31.5 % (37-47); Mean Corpuscular Hemoglobin 29.2 pg (25-34); Mean Corpuscular Hgb Conc 31.7 g/dL (32-36); Mean Corpuscular Volume 92.1 fL (80-100); Mean Platelet Volume 8.5 fL (7.4-10.4); Platelet Count 186 K/uL (130-400); RDW Coefficient of Variation 13.8 % (11.5-14.5); RDW Standard Deviation 46.6 fL (36.4-46.3); Red Blood Count 3.42 M/uL (4.2-5.4); White Blood Count 9.18 K/uL (4.8-10.8)
[2020-10-06] MEDS: LEVOTHYROXINE SODIUM 75 MCG TABLET PO SCH (06:19)
[2020-10-06 06:51] LABS: Calcium 8.1 mg/dl (8.5-10.1); Creatinine Clr Calc Pharmacy 84.8 ml/min; Est GFR (African American) 106.9 ml/min; Est GFR (Non-African American) 92.2 ml/min; Potassium 3.9 mmol/L (3.5-5.1)
[2020-10-06] MEDS ORDERED: bisacodyL 10 MG SUPP PR PRN (08:00)
--- NOTE | 2020-10-06 08:20 | Hospitalist Progress Note ---
Date of Service October 06, 2020 Assessment & Plan (1) Status post lumbar surgery: Post op day# 2 S/P removal instrumentation, L2-L4 decompression and fusion by Dr Chavarria -pain management per ortho -wound management per ortho -PT/OT as appropriate -DVT prophylaxis per ortho -incentive spirometry -monitor H&H for acute blood loss anemia; pre-op Hgb:13 Anemia, acute blood loss (post-op), dilutional - expected, no need for blood transfusion at this time - current Hgb 10.0 (stable from yesterday Hgb 10.1), preop Hgb 13 - cont. to monitor H&H Constipation - pt takes equate at home , will add senna this AM (2) Hypertension: SBP 90's-114 -Hold losartan and reassess tomorrow (3) Hypothyroidism: -Continue levothyroxine (4) GERD (gastroesophageal reflux disease): -Continue PPI (5) Depression: (6) Anxiety: -Continue duloxetine DVT Prophylaxis -SCDs per ortho Disposition per primary service Follows with Dr Yola Grider in [place], [place] for routine care Thank you for this consultation. We will follow the patient with you during their hospital stay. You [facility] via [employer] Admission and Anticipated Discharge Date Admission Date: October 04, 2020 Subjective Patient seen in follow-up, postop, medical consult Currently she is sitting up in bed, in no acute distress Denies any fevers, chills, chest pain, shortness of breath, abdominal pain, nausea or vomiting Reports pain (says it's worse then after her first back surgery) but she is able to ambulate She does not have a Chacon catheter, and is voiding without difficulty Reports constipation, will add senna this AM (pt takes equate at home) Review of Systems Review of Systems: All systems reviewed & are unremarkable except as noted in HPI & below Constitutional: no fever and no chills Respiratory: no cough and no dyspnea Cardiovascular: no chest pain and no palpitations Gastrointestinal: + constipation; no abdominal pain, no nausea and no vomiting Physical Exam Physical Exam: General: WDWN F, no distress, Head: normocephalic, atraumatic Eyes: conjunctiva non-injected, anicteric ENT: normal inspection external ears, nose, mucous membranes moist Neck: supple, trachea midline Lungs: clear, no respiratory distress, no wheezing/rhonchi/rales CV: RRR, no murmur, no pretibial edema Abd: normal BS, soft, non-tender Ext: no cyanosis, no calf tenderness; pedal pushes and pulls intact bilaterally, sensation to light touch and intact bilaterally Back: Surgical dressing in place is dry, SANTA drain with small amount of serosanguineous drainage Neuro: A&O x 3, no focal deficits noted, normal affect Skin: warm, dry Results & Data Results & Data ([facility]) Vital Signs (Past 12 Hours) Vital Signs Temp Pulse Resp BP Pulse Ox 10/06/20 08:13 37 C 77 16 101/61 97 10/06/20 06:00 36.8 C 78 18 114/70 99 10/05/20 22:39 37.8 C H 88 16 87/50 L 94 Laboratory Results 10/06/20 10/06/20 10/04/20 Range/Units 06:05 06:05 11:09 WBC 9.18 (4.8-10.8) K/uL RBC 3.42 L (4.2-5.4) M/uL Hgb 10.0 L (12.0-16.0) g/dL Hct 31.5 L (37-47) % MCV 92.1 (80-100) fL MCH 29.2 (25-34) pg MCHC 31.7 L (32-36) g/dL RDW Std Deviation 46.6 H (36.4-46.3) fL RDW Coeff of Elio 13.8 (11.5-14.5) % Plt Count 186 (130-400) K/uL MPV 8.5 (7.4-10.4) fL Sodium 140 (136-145) mmol/L Potassium 3.9 (3.5-5.1) mmol/L Chloride 110 H (98-107) mmol/L Carbon Dioxide 29 (21-32) mmol/L Anion Gap 1.0 L (3-11) BUN 11 (7-18) mg/dl Creatinine 0.70 (0.6-1.2) mg/dl Est Cr Clr Drug Dosing 84.8 ml/min Est GFR ( Amer) 106.9 ml/min Est GFR (Non-Af Amer) 92.2 ml/min BUN/Creatinine Ratio 16.0 (10-20) Glucose 105 H (70-99) mg/dl Calcium 8.1 L (8.5-10.1) mg/dl Crossmatch See Detail Medications Administered Current Inpatient Medications Acetaminophen (Acetaminophen 500 Mg Tab) 1,000 mg PO Q8H PRN PRN Reason: MILD Pain Scale 1,2,3 & Pre PT Stop: 11/03/20 17:02 Al Hydrox/Mg Hydrox/Simethicone (Aluminum/Magnesium Susp 30 Ml Udc) 30 ml PO Q6H PRN PRN Reason: Dyspepsia Stop: 11/03/20 17:02 Last Admin: 10/06/20 04:19 Dose: 30 ml Documented by: Bisacodyl (Bisacodyl 10 Mg Supp) 10 mg [place] DAILY PRN PRN Reason: Constipation Stop: 11/05/20 07:59 Butalbital/Aspirin/Caffeine/Codeine (Butalbital/Asa/Caffeine/Cod 50/325/40/30 Mg Cap) 1 - 2 cap PO DAILY PRN PRN Reason: Migraine Headache Stop: 11/03/20 21:20 Cyclobenzaprine HCl (Cyclobenzaprine Hcl 10 Mg Tab) 10 mg PO Q8 PRN PRN Reason: Muscle Spasm Stop: 11/03/20 17:02 Diazepam (Diazepam 5 Mg Tablet) 5 mg PO TID PRN PRN Reason: Anxiety Stop: 11/03/20 17:02 Last Admin: 10/05/20 12:07 Dose: 5 mg Documented by: Diphenhydramine HCl (Diphenhydramine Capsule 25 Mg Cap) 25 mg PO Q6H PRN PRN Reason: Allergic Rhinitis/Insomnia Stop: 11/03/20 17:02 Duloxetine HCl (Duloxetine Hcl 60 Mg Cap) 60 mg PO QAM HATTIE Stop: 11/04/20 08:59 Last Admin: 10/05/20 08:56 Dose: 60 mg Documented by: Famotidine (Famotidine 20 Mg Tab) 20 mg PO Q12H PRN PRN Reason: Dyspepsia Stop: 11/03/20 17:02 Last Admin: 10/06/20 00:36 Dose: 20 mg Documented by: Hydromorphone HCl (Hydromorphone Inj 0.5 Mg/0.5 Ml Syr) 0.5 mg IV Q3H PRN PRN Reason: MOD pain (scale 4-6) & Pre PT Stop: 10/18/20 17:02 Hydromorphone HCl (Hydromorphone Inj 1 Mg/Ml Syringe) 1 mg IV Q3H PRN PRN Reason: severe pain (scale 7-10) Stop: 10/18/20 17:02 Hydroxyzine HCl (Hydroxyzine Hcl 25 Mg Tab) 25 mg PO Q8H PRN PRN Reason: Anxiety Stop: 11/03/20 17:02 Lorazepam (Ativan) 0.5 mg in 1 mls @ 1 mls/min IV Q8H PRN PRN Reason: Sedation/Anxiety Stop: 11/03/20 17:02 Promethazine HCl 12.5 mg/ (Sodium Chloride) 50.5 mls @ 202 mls/hr IV Q6H PRN PRN Reason: Nausea &/or Vomiting Stop: 11/03/20 17:02 Influenza Virus Vaccine Quadrival (Do Not Administer Flu Vaccine) 1 ea N/A PRN PRN PRN Reason: Notification Stop: 11/03/20 17:02 Levothyroxine Sodium (Levothyroxine Sodium 75 Mcg Tablet) 75 mcg PO DAILYBB [facility] Stop: 11/04/20 06:29 Last Admin: 10/06/20 06:19 Dose: 75 mcg Documented by: Lorazepam (Lorazepam 0.5 Mg Tab) 0.5 mg PO Q8H PRN PRN Reason: sedation/anxiety Stop: 11/03/20 17:02 Last Admin: 10/05/20 01:05 Dose: 0.5 mg Documented by: Losartan Potassium (Losartan Potassium 25 Mg Tab) 25 mg PO QAM [facility] Stop: 11/04/20 08:59 Magnesium Hydroxide (Magnesium Hydroxide Susp 30 Ml Udc) 30 ml PO Q24H PRN PRN Reason: Constipation Stop: 11/03/20 17:02 Metoclopramide HCl (Metoclopramide Hcl Inj 5 Mg/Ml 2 Ml Vial) 10 mg IV Q6H PRN PRN Reason: Nausea &/or Vomiting Stop: 11/03/20 17:02 Naloxone HCl (Naloxone Hcl 0.4 Mg/1 Ml Vial/Carp) 0.1 mg IV Q5M PRN PRN Reason: Oversedation/respiratory dep Stop: 11/03/20 17:02 Ondansetron HCl (Ondansetron Inj 2 Mg/Ml 2 Ml Vial) 4 mg IV Q6H PRN PRN Reason: Nausea &/or Vomiting Stop: 11/03/20 17:02 Ondansetron HCl (Ondansetron 4 Mg Od Tab) 4 mg PO Q6H PRN PRN Reason: Nausea Stop: 11/03/20 17:02 Last Admin: 10/05/20 01:03 Dose: 4 mg Documented by: Oxycodone HCl (Oxycodone Hcl Ir 5 Mg Tab (Immediate Release)) 5 - 10 mg PO Q4H PRN PRN Reason: Pain & Pre PT Stop: 10/18/20 17:02 Last Admin: 10/06/20 04:18 Dose: 10 mg Documented by: Pantoprazole Sodium (Pantoprazole 40 Mg Tab) 40 mg PO QAM [facility] Stop: 11/04/20 08:59 Last Admin: 10/05/20 08:55 Dose: 40 mg Documented by: Pneumococcal Polyvalent Vaccine (Do Not Administer Pneumococcal Vaccine) 1 ea N/A PRN PRN PRN Reason: Notification Stop: 11/03/20 17:02 Polyethylene Glycol (Polyethylene (Miralax) 17 Gm Pack) 17 gm PO Q6 HATTIE Stop: 11/04/20 05:59 Last Admin: 10/06/20 05:57 Dose: Not Given Documented by: Senna/Docusate Sodium (Docusate Sodium/Senna 50/8.6mg Tab) 2 tab PO HS HATTIE Stop: 11/03/20 20:59 Last Admin: 10/05/20 19:11 Dose: 2 tab Documented by: Sodium Biphosphate/Sodium Phosphate (Sod Phosphate/Sod Biphosphate Enema 132 Ml Btl) 132 ml [place] ONE PRN PRN Reason: Constipation Stop: 11/03/20 17:02 Topiramate (Topiramate 100 Mg Tab) 200 mg PO QAM [facility] Stop: 11/04/20 08:59 Last Admin: 10/05/20 08:55 Dose: 200 mg Documented by: Tramadol HCl (Tramadol Hcl 50 Mg Tablet) 50 - 100 mg PO Q4H PRN PRN Reason: Moderate-Severe pain & Pre PT Stop: 11/03/20 17:02
[2020-10-06] MEDS: DULoxetine HCL 60 MG CAP PO SCH (09:02)
[2020-10-06] MEDS: TOPIRAMATE 100 MG TAB PO SCH (09:02)
[2020-10-06] MEDS: PANTOprazole 40 MG TAB PO SCH (09:02)
[2020-10-06] MEDS ORDERED: LACTULOSE SYRUP 20 GM/30 ML UDC PO PRN (09:15)
--- NOTE | 2020-10-06 10:58 | Orthopedic Progress Note ---
Date of Service October 06, 2020 Assessment & Plan (1) Lumbar stenosis with neurogenic claudication: Admission and Anticipated Discharge Date Admission Date: October 04, 2020 This time we will continue physical therapy monitor SANTA output anticipate possible discharge home tomorrow. Subjective Back pain is controlled leg symptoms markedly improved Physical Exam Physical Exam: Patient is good strength testing. Results & Data ([facility]) Vital Signs (Past 12 Hours) Vital Signs Temp Pulse Resp BP Pulse Ox 10/06/20 08:13 37 C 77 16 101/61 97 10/06/20 06:00 36.8 C 78 18 114/70 99
[2020-10-06] MEDS: dexAMETHasone 8 MG in SYRINGE 0 ML IV SCH (11:34)
[2020-10-06] MEDS: SENNA 8.6 MG TAB PO SCH (11:35)
[2020-10-06] MEDS: DOCUSATE SODIUM/SENNA 50/8.6MG TAB PO SCH (19:40)
[2020-10-07] MEDS: POLYETHYLENE (MIRALAX) 17 GM PACK PO SCH ×3 (00:04→12:23)
[2020-10-07] MEDS: diazePAM 5 MG TABLET PO PRN (00:52)
[2020-10-07] MEDS: LEVOTHYROXINE SODIUM 75 MCG TABLET PO SCH (06:04)
[2020-10-07 06:14] LABS: Hematocrit (blood only) 30.9 % (37-47)
[2020-10-07 06:44] LABS: BUN Creatinine Ratio 17.2 (10-20); Calcium 8.5 mg/dl (8.5-10.1); Creatinine Clr Calc Pharmacy 100.7 ml/min; Est GFR (African American) 113.1 ml/min; Est GFR (Non-African American) 97.5 ml/min; Potassium 4.1 mmol/L (3.5-5.1)
[2020-10-07] MEDS: oxyCODONE HCL IR 5 MG TAB (IMMEDIATE RELEASE) PO PRN ×2 (07:41→13:37)
--- NOTE | 2020-10-07 08:23 | Hospitalist Progress Note ---
Date of Service October 07, 2020 Assessment & Plan (1) Status post lumbar surgery: Post op day# 3 S/P removal instrumentation, L2-L4 decompression and fusion by Dr Chavarria -pain management per ortho -wound management per ortho -PT/OT as appropriate -DVT prophylaxis per ortho -incentive spirometry -monitor H&H for acute blood loss anemia; pre-op Hgb:13 Anemia, acute blood loss (post-op), dilutional - expected, no need for blood transfusion at this time - current Hgb 10.0 (stable from yesterday Hgb 10.0), preop Hgb 13 - cont. to monitor H&H Constipation - pt takes equate at home , added senna AM to already ordered HS (2) Hypertension: SBP 90's-114 -Hold losartan and reassess tomorrow (3) Hypothyroidism: -Continue levothyroxine (4) GERD (gastroesophageal reflux disease): -Continue PPI (5) Depression: (6) Anxiety: -Continue duloxetine DVT Prophylaxis -SCDs per ortho Disposition per primary service Follows with Dr Yola Grider in [place], [place] for routine care Thank you for this consultation. We will follow the patient with you during their hospital stay. You can reach a member of the [facility]ist Team 02/11 via [employer] Admission and Anticipated Discharge Date Admission Date: October 04, 2020 Subjective Patient seen in follow-up, postop, medical consult Currently she is lying in bed, in no acute distress, but complains of some DOMINGUEZ Denies any fevers, chills, chest pain, shortness of breath, abdominal pain, nausea or vomiting Reports constipation, but passing flatus Review of Systems Review of Systems: All systems reviewed & are unremarkable except as noted in HPI & below Constitutional: no fever and no chills Respiratory: no cough and no dyspnea Cardiovascular: no chest pain and no palpitations Gastrointestinal: no abdominal pain, no nausea and no vomiting Neurologic: + headache(s) Physical Exam Physical Exam: General: WDWN F, no distress, Head: normocephalic, atraumatic Eyes: conjunctiva non-injected, anicteric ENT: normal inspection external ears, nose, mucous membranes moist Neck: supple, trachea midline Lungs: clear, no respiratory distress, no wheezing/rhonchi/rales CV: RRR, no murmur, no pretibial edema Abd: normal BS, soft, non-tender Ext: no calf tenderness; pedal pushes and pulls intact bilaterally, sensation to light touch and intact bilaterally Back: Surgical dressing in place is dry, SANTA drain with small amount of serosanguineous drainage Neuro: A&O x 3, no focal deficits noted, normal affect Skin: warm, dry Results & Data Results & Data ([facility]) Vital Signs (Past 12 Hours) Vital Signs Temp Pulse Resp BP Pulse Ox 10/07/20 07:31 36.7 C 65 16 112/65 97 10/06/20 22:58 36.7 C 82 18 115/70 95 Laboratory Results 10/07/20 10/07/20 Range/Units 05:59 05:59 Hgb 10.0 L (12.0-16.0) g/dL Hct 30.9 L (37-47) % Sodium 141 (136-145) mmol/L Potassium 4.1 (3.5-5.1) mmol/L Chloride 110 H (98-107) mmol/L Carbon Dioxide 26 (21-32) mmol/L Anion Gap 4.0 (3-11) BUN 10 (7-18) mg/dl Creatinine 0.59 L (0.6-1.2) mg/dl Est Cr Clr Drug Dosing 100.7 ml/min Est GFR ( Amer) 113.1 ml/min Est GFR (Non-Af Amer) 97.5 ml/min BUN/Creatinine Ratio 17.2 (10-20) Glucose 110 H (70-99) mg/dl Calcium 8.5 (8.5-10.1) mg/dl Medications Administered Current Inpatient Medications Acetaminophen (Acetaminophen 500 Mg Tab) 1,000 mg PO Q8H PRN PRN Reason: MILD Pain Scale 1,2,3 & Pre PT Stop: 11/03/20 17:02 Al Hydrox/Mg Hydrox/Simethicone (Aluminum/Magnesium Susp 30 Ml Udc) 30 ml PO Q6H PRN PRN Reason: Dyspepsia Stop: 11/03/20 17:02 Last Admin: 10/06/20 23:17 Dose: 30 ml Documented by: Bisacodyl (Bisacodyl 10 Mg Supp) 10 mg [place] DAILY PRN PRN Reason: Constipation Stop: 11/05/20 07:59 Butalbital/Aspirin/Caffeine/Codeine (Butalbital/Asa/Caffeine/Cod 50/325/40/30 Mg Cap) 1 - 2 cap PO DAILY PRN PRN Reason: Migraine Headache Stop: 11/03/20 21:20 Cyclobenzaprine HCl (Cyclobenzaprine Hcl 10 Mg Tab) 10 mg PO Q8 PRN PRN Reason: Muscle Spasm Stop: 11/03/20 17:02 Diazepam (Diazepam 5 Mg Tablet) 5 mg PO TID PRN PRN Reason: Anxiety Stop: 11/03/20 17:02 Last Admin: 10/07/20 00:52 Dose: 5 mg Documented by: Diphenhydramine HCl (Diphenhydramine Capsule 25 Mg Cap) 25 mg PO Q6H PRN PRN Reason: Allergic Rhinitis/Insomnia Stop: 11/03/20 17:02 Duloxetine HCl (Duloxetine Hcl 60 Mg Cap) 60 mg PO QAM HATTIE Stop: 11/04/20 08:59 Last Admin: 10/06/20 09:02 Dose: 60 mg Documented by: Famotidine (Famotidine 20 Mg Tab) 20 mg PO Q12H PRN PRN Reason: Dyspepsia Stop: 11/03/20 17:02 Last Admin: 10/06/20 00:36 Dose: 20 mg Documented by: Hydromorphone HCl (Hydromorphone Inj 0.5 Mg/0.5 Ml Syr) 0.5 mg IV Q3H PRN PRN Reason: MOD pain (scale 4-6) & Pre PT Stop: 10/18/20 17:02 Hydromorphone HCl (Hydromorphone Inj 1 Mg/Ml Syringe) 1 mg IV Q3H PRN PRN Reason: severe pain (scale 7-10) Stop: 10/18/20 17:02 Hydroxyzine HCl (Hydroxyzine Hcl 25 Mg Tab) 25 mg PO Q8H PRN PRN Reason: Anxiety Stop: 11/03/20 17:02 Lorazepam (Ativan) 0.5 mg in 1 mls @ 1 mls/min IV Q8H PRN PRN Reason: Sedation/Anxiety Stop: 11/03/20 17:02 Promethazine HCl 12.5 mg/ (Sodium Chloride) 50.5 mls @ 202 mls/hr IV Q6H PRN PRN Reason: Nausea &/or Vomiting Stop: 11/03/20 17:02 Dexamethasone 8 mg/ Syringe 2 mls @ 1 mls/min IV DAILY HATTIE Stop: 11/05/20 10:59 Last Admin: 10/06/20 11:34 Dose: 1 mls/min Documented by: Influenza Virus Vaccine Quadrival (Do Not Administer Flu Vaccine) 1 ea N/A PRN PRN PRN Reason: Notification Stop: 11/03/20 17:02 Lactulose (Lactulose Syrup 20 Gm/30 Ml Udc) 20 gm PO DAILY PRN PRN Reason: constipation Stop: 11/05/20 09:14 Levothyroxine Sodium (Levothyroxine Sodium 75 Mcg Tablet) 75 mcg PO DAILYBB HATTIE Stop: 11/04/20 06:29 Last Admin: 10/07/20 06:04 Dose: 75 mcg Documented by: Lorazepam (Lorazepam 0.5 Mg Tab) 0.5 mg PO Q8H PRN PRN Reason: sedation/anxiety Stop: 11/03/20 17:02 Last Admin: 10/05/20 01:05 Dose: 0.5 mg Documented by: Losartan Potassium (Losartan Potassium 25 Mg Tab) 25 mg PO QAM HATTIE Stop: 11/04/20 08:59 Magnesium Hydroxide (Magnesium Hydroxide Susp 30 Ml Udc) 30 ml PO Q24H PRN PRN Reason: Constipation Stop: 11/03/20 17:02 Metoclopramide HCl (Metoclopramide Hcl Inj 5 Mg/Ml 2 Ml Vial) 10 mg IV Q6H PRN PRN Reason: Nausea &/or Vomiting Stop: 11/03/20 17:02 Naloxone HCl (Naloxone Hcl 0.4 Mg/1 Ml Vial/Carp) 0.1 mg IV Q5M PRN PRN Reason: Oversedation/respiratory dep Stop: 11/03/20 17:02 Ondansetron HCl (Ondansetron Inj 2 Mg/Ml 2 Ml Vial) 4 mg IV Q6H PRN PRN Reason: Nausea &/or Vomiting Stop: 11/03/20 17:02 Ondansetron HCl (Ondansetron 4 Mg Od Tab) 4 mg PO Q6H PRN PRN Reason: Nausea Stop: 11/03/20 17:02 Last Admin: 10/05/20 01:03 Dose: 4 mg Documented by: Oxycodone HCl (Oxycodone Hcl Ir 5 Mg Tab (Immediate Release)) 5 - 10 mg PO Q4H PRN PRN Reason: Pain & Pre PT Stop: 10/18/20 17:02 Last Admin: 10/07/20 07:41 Dose: 5 mg Documented by: Pantoprazole Sodium (Pantoprazole 40 Mg Tab) 40 mg PO QAM [facility] Stop: 11/04/20 08:59 Last Admin: 10/06/20 09:02 Dose: 40 mg Documented by: Pneumococcal Polyvalent Vaccine (Do Not Administer Pneumococcal Vaccine) 1 ea N/A PRN PRN PRN Reason: Notification Stop: 11/03/20 17:02 Polyethylene Glycol (Polyethylene (Miralax) 17 Gm Pack) 17 gm PO Q6 [facility] Stop: 11/04/20 05:59 Last Admin: 10/07/20 06:04 Dose: Not Given Documented by: Senna/Docusate Sodium (Docusate Sodium/Senna 50/8.6mg Tab) 2 tab PO HS [facility] Stop: 11/03/20 20:59 Last Admin: 10/06/20 19:40 Dose: Not Given Documented by: Sennosides (Senna 8.6 Mg Tab) 8.6 mg PO QAM [facility] Stop: 11/05/20 09:14 Last Admin: 10/06/20 11:35 Dose: Not Given Documented by: Sodium Biphosphate/Sodium Phosphate (Sod Phosphate/Sod Biphosphate Enema 132 Ml Btl) 132 ml [place] ONE PRN PRN Reason: Constipation Stop: 11/03/20 17:02 Topiramate (Topiramate 100 Mg Tab) 200 mg PO [facility] Stop: 11/04/20 08:59 Last Admin: 10/06/20 09:02 Dose: 200 mg Documented by: Tramadol HCl (Tramadol Hcl 50 Mg Tablet) 50 - 100 mg PO Q4H PRN PRN Reason: Moderate-Severe pain & Pre PT Stop: 11/03/20 17:02
[2020-10-07] MEDS: TOPIRAMATE 100 MG TAB PO SCH (09:30)
[2020-10-07] MEDS: PANTOprazole 40 MG TAB PO SCH (09:30)
[2020-10-07] MEDS: SENNA 8.6 MG TAB PO SCH (09:31)
[2020-10-07] MEDS: DULoxetine HCL 60 MG CAP PO SCH (09:31)
[2020-10-07] MEDS: dexAMETHasone 8 MG in SYRINGE 0 ML IV SCH (09:32)
--- NOTE | 2020-10-07 10:10 | Discharge Summary ---
Date of Service October 07, 2020 Admission HPI Per Admitting Provider This is a 65-year-old female who presents with current persistent back and leg pain. Failing course of nonoperative care she is here for surgical invention. Principal Diagnosis Lumbar spinal stenosis with neurogenic claudication Discharge Data Allergies Allergy/AdvReac Type Severity Reaction Status Date / Time cefprozil Allergy Unknown Tongue/hand Verified 10/04/20 11:09 swelling, itchiness eucalyptol Allergy Unknown Tongue Verified 10/04/20 11:09 [Listerine Antiseptic] swelling, hives Iodinated Contrast Media Allergy Unknown Swelling, Verified 10/04/20 11:09 hives ketorolac [From Toradol] Allergy Unknown Tongue/hand Verified 10/04/20 11:09 swelling, diffuse cramping Listerine Antiseptic Allergy Unknown TONGUE Unverified 11/07/13 13:47 SWELLING, HIVES menthol Allergy Unknown Tongue Verified 10/04/20 11:09 [Listerine Antiseptic] swelling, hives methyl salicylate Allergy Unknown Tongue Verified 10/04/20 11:09 [Listerine Antiseptic] swelling, hives thymol [Listerine Antiseptic] Allergy Unknown Tongue Verified 10/04/20 11:09 swelling, hives cefazolin [From Ancef] Allergy Verified 10/04/20 11:36 Bactrim AdvReac Unknown SEVERE ABD Unverified 11/07/13 13:47 PAIN, N&V doxycycline AdvReac Unknown Severe Verified 10/04/20 11:09 abdominal pain, N/V Penicillins AdvReac Unknown Severe Verified 10/04/20 11:09 abdominal pain, N/V sulfamethoxazole [Bactrim] AdvReac Unknown Severe Verified 10/04/20 11:09 abdominal pain, N/V trimethoprim [Bactrim] AdvReac Unknown Severe Verified 10/04/20 11:09 abdominal pain, N/V Consultations 10/04/20 17:03 Consult Hospitalist Routine Procedures Performed Operation Date: 10/04/20 12:25 Actual Procedures p L3-L4 Decompression, L3-L5 Fusion, L4-L5 Hardware Removal(Bilateral) - Keith Chavarria DO Ordered Studies 10/04/20 12:25 FL lumbar spine 2-3V Routine Hospital Course (1) Lumbar stenosis with neurogenic claudication: Patient 1 lumbar decompression fusion tolerates well second orthopedic for postoperative postop day #1 is up and ambulating progressed postop #2 on postop #3 shoulder pain was well controlled SANTA drain decreasing probably. Excellent strength testing. Simply discharged home. Discharge orders instructions from the chart for further review. Total Time Total Time Spent Total Time Spent (In Minutes): 20 minutes Discharge Plan Discharge Items Patient Disposition: Home - Self-Care Reason For Visit: Spinal Stenosis, Lumbar Region with Neurogenic Cla Discharge Diagnosis: Lumbar spinal stenosis with neurogenic claudication Activity: As commented below Non-emergency contact: Primary Care Provider Call non-emergency contact if: you have any medication questions Follow-up/Referrals: Yola Grider DO [Primary Care Provider] - Diet: Regular Addtl Attending Provider Instructions: ACTIVITY RECOMMENDATIONS: SELF CARE INSTRUCTIONS AFTER CERVICAL FUSIONS 1. No smoking. Smoking drastically decreases the chance of a solid fusion. 2. No bending, lifting more than 5 pounds, or twisting (roll like a log when turning in bed). 3. You may shower 3 days after surgery. Thoroughly dry wound. Do not soak in the tub. 4. Cervical collar: Must be worn at all times including sleeping. You may remove the brace only to bath, eat and if you are sitting in a recliner. 5. Please walk as much as you can for exercise. Gradually increase the distance that you walk as your endurance increases. SPECIAL CARE INSTRUCTIONS: VERY IMPORTANT TO READ AND REVIEW A. Do not take any anti-inflammatory medications (i.e. Indocin, Advil, Aspirin, Naprosyn, Aleve, Motrin, etc.) as these may inhibit the chance of a solid fusion. Tylenol is okay to take. B. Your surgical incision has been closed with a cosmetic suture under the skin that will dissolve in about 6 weeks. In 14 days, you can use a pair of clean scissors and cut the suture that is left outside of the skin at the ends of your incision. C. Complications are uncommon, but please contact us if you have any signs or symptoms of: 1. wound infection (fever higher than 102.5 degrees F, redness, separation of wound, drainage, or increasing pain from the incision) 2. blood clots in legs (pain, swelling, redness and warmth in legs) 3. urinary tract infection (fever higher than 102.5 degrees, burning upon urination or increased frequency of urination) 4. nerve problems (inability to walk on your toes or heels, numbness, loss of bowel or bladder control) 5. any other symptoms that concern you. D. Please call the office at if you have any concerns or questions about your operation or recovery. MANAGING PAIN AFTER SPINAL SURGERY 1. Narcotic medication is intended for short-term use and will be provided for surgical pain. Surgical pain usually lasts for a period of 4-6 weeks. Narcotic medication includes Percocet, Vicodin, Darvocet, Tylenol #3 or Lortab. 2. Longer-term pain is more appropriately treated with non-narcotic medication such as Tylenol ES. 3. Muscle spasm is not appropriately treated with narcotics. Muscle relaxers such as Soma, Flexeril or Skelaxin can be used along with Tylenol ES. 4. Remember that we all live with some "aches and pains". This is not unusual or uncommon after an injury or as we get older. 5. We will provide appropriate medication within the normal guidelines of their prescribed use. We will also be very cautious and aware of potential abuse and extended duration of patients' medication needs. 6. Please allow 2-3 days to process refills. Prescriptions will not be mailed but must be picked up at the office. FOLLOW UP VISIT: Keep your scheduled follow-up appointment. Any questions, please call the office at . Pending Studies at Discharge: No Stand-Alone Forms: My [facility] [employer], Smoking Cessation Medications and DC Order Prescriptions: New tramadol 50 mg tablet 50 mg PO Q6H PRN (Reason: pain, moderate) Qty: 30 RF: 0 oxycodone 5 mg tablet 5 mg PO Q6H PRN (Reason: pain, severe) Qty: 30 RF: 0 Continued levothyroxine 75 mcg Tablet 75 mcg PO QAM RF: 0 losartan 25 mg Tablet 25 mg PO QAM RF: 0 topiramate 100 mg Tablet 200 mg PO QAM RF: 0 duloxetine 60 mg Capsule,Delayed Release(Dr/Ec) 60 mg PO QAM RF: 0 omeprazole 20 mg Tablet,Delayed Release (Dr/Ec) 40 mg PO QAM RF: 0 oxycodone 10 mg Tablet 10 mg PO QID PRN (Reason: Pain) RF: 0 [id number] mg Capsule 1 - 2 cap PO UD PRN (Reason: Migraine Headache) RF: 0 cyclobenzaprine 5 mg Tablet 5 mg PO TID PRN (Reason: Muscle Spasm) RF: 0 diazepam 5 mg Tablet 5 mg PO TID PRN (Reason: Anxiety) RF: 0 Amitiza 1 tab PO BID RF: 0 Discharge Orders: Discharge Order (Routine); Ordered 10/07/20 Ordered By: Keith Chavarria Admission Data Admit Date/Time: 10/04/20 16:16 Attending Provider: Keith Chavarria Admit Provider: Keith Chavarria Primary Care Provider: Yola Grider Other Providers: Lamine Major
== END 2020-10-07 16:44 | disposition home or self-care (01) | DRG 455 ==
LOC: ASU 10:28 → 3E 16:16
DX: Z01.812 Encounter for preprocedural laboratory examination; K21.9 Gastro-esophageal reflux disease without esophagitis; K59.00 Constipation, unspecified; I10 Essential (primary) hypertension; Z88.1 Allergy status to other antibiotic agents; M48.062 Spinal stenosis, lumbar region with neurogenic claudication; Z20.822 Contact with and (suspected) exposure to COVID-19; Z91.041 Radiographic dye allergy status; Z68.30 Body mass index [BMI] 30.0-30.9, adult; F41.8 Other specified anxiety disorders; E03.9 Hypothyroidism, unspecified; E66.9 Obesity, unspecified